=== PATIENT | male | born 1995 | race African-American/Black ===

== ENCOUNTER 2021-09-12 14:01 | Emergency (ER) | payer OTHER, BC ==
[2021-09-12 14:25] LABS: #Lymphocytes 3.4 thou/uL (1.20-3.40); #Monocytes 0.7 thou/uL (0.11-0.59); #Neutrophils 2.7 thou/uL (1.40-6.50); %Basophils 0.7 % (0.0-1.0); %Eosinophils 0.7 % (0.0-10.0); %Lymphocytes 49.6 % (21.0-51.0); %Monocytes 9.5 % (0.0-10.0); %Neutrophils 39.5 % (42.0-75.0); Hemoglobin 15.1 g/dL (14.0-18.0); Mean Corpuscular HGB CONC 33.3 g/dL (32.0-36.0); Mean Corpuscular Hemoglobin 31.7 pg (27.0-31.0); Mean Corpuscular Volume 95.2 fL (78.0-98.0); Mean Platelet Volume 6.1 fL (7.4-10.4); Platelet Count 270 thou/uL (130-400); RBC Distribution Width 11.5 % (11.5-14.5); Red Blood Cell (RBC) Count 4.78 mill/uL (4.70-6.10); White Blood Cell (WBC) Count 6.9 thou/uL (4.8-10.8)
[2021-09-12 14:35] LABS: ALT (SGPT) 17 U/L (8-55); AST (SGOT) 25 U/L (5-34); Albumin 4.3 g/dL (3.5-5.0); Alkaline Phosphatase 61 U/L (40-110); Anion Gap 14 mmol/L (10-20); BUN (Urea Nitrogen) 17 mg/dL (8.9-20.6); Bilirubin, Total 1.6 mg/dL (0.2-1.2); Calc. Creatinine Clearance 0 mL/min (70-130); Calcium 8.8 mg/dL (7.8-10.44); Carbon Dioxide 21 mmol/L (22-29); Chloride 107 mmol/L (98-107); Globulin 2.8 g/dL (2.4-3.5); Glucose 104 mg/dL (70-105); Potassium 3.7 mmol/L (3.5-5.1); Protein, Total 7.1 g/dL (6.0-8.3); Sodium 138 mmol/L (136-145)
[2021-09-12 14:40] LABS: PTT 28.7 sec (22.9-36.1); Prothrombin Time 13.2 sec (12.0-14.7)
== END 2021-09-12 15:47 | disposition home or self-care (01) ==
LOC: ERS 14:01
DX: S80.02XA Contusion of left knee, initial encounter (principal); V43.62XA Car passenger injured in collision with other type car in traffic accident, initial encounter
CPT/HCPCS: 72170; 80053; 85025; 85610; 85730

== ENCOUNTER 2022-08-09 18:30 | Emergency (ER) | payer BC ==
[~2022-08-09 18:30] MED LIST: Iopamidol-370 76% 500 ML 1 ML ONE
[2022-08-09] MEDS ORDERED: CEFAZOLIN 2 GM VIAL ONE (18:31)
[2022-08-09] MEDS ORDERED: Boostrix 0.5 ML (Tdap) VIAL (>/=7 yrs of age) ONE (18:31)
[2022-08-09 18:44] LABS: #Lymphocytes 3.2 thou/uL (1.20-3.40); #Monocytes 0.6 thou/uL (0.11-0.59); #Neutrophils 3.5 thou/uL (1.40-6.50); %Basophils 0.5 % (0.0-1.0); %Eosinophils 0.6 % (0.0-10.0); %Lymphocytes 43.8 % (21.0-51.0); %Monocytes 8.2 % (0.0-10.0); %Neutrophils 46.9 % (42.0-75.0); Hemoglobin 15.5 g/dL (14.0-18.0); Mean Corpuscular Hemoglobin 31.5 pg (27.0-31.0); Mean Corpuscular Volume 92.9 fl (78.0-98.0); Mean Platelet Volume 6.3 fL (7.4-10.4); Platelet Count 277 10x3/uL (130-400); RBC Distribution Width 11.6 % (11.5-14.5); Red Blood Cell (RBC) Count 4.92 mill/uL (4.70-6.10); White Blood Cell (WBC) Count 7.4 10x3/uL (4.8-10.8)
[2022-08-09] MEDS ORDERED: Fentanyl 100 MCG/2 ML VIAL ONE (18:48)
[2022-08-09 19:00] LABS: ALT (SGPT) 14 U/L (8-55); AST (SGOT) 24 U/L (5-34); Albumin 4.2 g/dL (3.5-5.0); Alkaline Phosphatase 51 U/L (40-110); Anion Gap 12 mmol/L (10-20); BUN (Urea Nitrogen) 11 mg/dL (8.9-20.6); Bilirubin, Total 1.4 mg/dL (0.2-1.2); Calc. Creatinine Clearance 0 mL/min (70-130); Calcium 9.1 mg/dL (7.8-10.44); Carbon Dioxide 26 mmol/L (22-29); Chloride 106 mmol/L (98-107); Estimated GFR 101; Glucose 111 mg/dL (70-105); Potassium 3.5 mmol/L (3.5-5.1); Protein, Total 7.2 g/dL (6.0-8.3); Sodium 140 mmol/L (136-145)
[2022-08-09 19:02] LABS: Prothrombin Time 13.1 sec (12.0-14.7)
[2022-08-09 19:03] LABS: PTT 27.1 sec (22.9-36.1)
[2022-08-09 19:21] LABS: Acetaminophen Less than 10.0 mcg/mL (10.0-30.0); Alcohol Less than 10 mg/dL (Less than 10); Salicylate Less than 8.0 mg/dL (15.0-30.0)
== END 2022-08-09 20:20 | disposition home or self-care (01) ==
LOC: ERS 18:30
DX: S11.93XA Puncture wound without foreign body of unspecified part of neck, initial encounter (principal); W34.00XA Accidental discharge from unspecified firearms or gun, initial encounter; Z23 Encounter for immunization
CPT/HCPCS: 70450; 70498; 80307; 83605; 85025; 85610; 85730; 86850; 86900; 86901; 90471; 90715; 93005; 96374; 96375; G0390; J3010; Q9967